=== PATIENT | female | born 1940 | race Hispanic/Latino ===

== ENCOUNTER 2022-03-30 13:36 | Emergency (ER) | payer OTHER ==
--- OUTSIDE RECORDS SUMMARY | 2022-03-30 13:40 | XMS REPORT | Continuity of Care Document ---
:1940 Author Organization [facility] t Address [address] [place] [address] Care Team Providers Name Role Phone Analisa Freire MD Primary Care Physician ROSALVA PARSONS Attending Clinician Unavailable PAYAL HER Attending Clinician Unavailable IGOR ARANDA Attending Clinician Unavailable ELEAZAR ALVES Attending Clinician Unavailable ZAC KENNEDY Attending Clinician Unavailable GALEN ADLER Attending Clinician Unavailable PROVIDER, AFFILIATE Attending Clinician Unavailable RAE CHAN Attending Clinician Unavailable LAB90 Attending Clinician Unavailable Zac Kennedy DO Attending Clinician Katie Huffman MD Attending Clinician [phone] KATIE HUFFMAN Attending Clinician Unavailable Rosalva Parsons PA-C Attending Clinician JOHNNIE TODD Attending Clinician Unavailable LILLIAN ULLOA Attending Clinician Unavailable Hue, YAIMA Attending Clinician Unavailable JUJU SORIA Attending Clinician Unavailable MARNIE GALLAGHER Attending Clinician Unavailable ROS-MODERNA GABINO COOK Attending Clinician ANALISA Joiner Attending Clinician Unavailable ROS-MODERNA LILLIAN COOK Attending Clinician UnavailYOMAIRA Dyer Attending Clinician Unavailable CLAIRE FITZPATRICK Attending Clinician Unavailable Payers Payer Name Policy Type Policy Number Effective Date Expiration Date S [facility] 7 [id number] 2017 00:00:00 Problems Condition Condition Condition Status Onset Resolution Last Treating Co mments Source Name Details Category Date Date Treatment Clinician Date Dementia Dementia Disease Active 2020-05 Overview: Eric lopez without without 2-10 Formattin Seybo ld behavioral behavioral 00:00: g of this disturbanc disturbanc 00 note e e might be different from the original. meds did not help Per daughter memory loss has progresse d -includin g ability to take care of hygiene Daughter takes care of daily functions Has quetiapin e to take prn for agitation not used per daughter Last Assessmen t & Plan: Formattin g of this note might be different from the original. Not Controlle d Abnormal Abnormal Disease Active 2020-05 Jose correia ECG ECG 0-14 Seybold 00:00: 00 LEE LEE Disease Active 2020-05 Yi (dyspnea (dyspnea 0-14 Seybol d on on 00:00: exertion) exertion) 00 Type 2 Type 2 Disease Active Yi diabetes diabetes 8-25 Seybol d mellitus mellitus 00:00: with stage with stage 00 3a chronic 3a chronic kidney kidney disease disease Dyslipidem Dyslipidem Disease Active 2019-05 K elsey ia ia 0-08 Seybold 00:00: 00 Osteopenia Osteopenia Disease Active Overview : iY 9-22 Formattin Seybold 00:00: g of this 00 note might be different from the original. On alendrona te since 2017 Last bone density 01/2019 improved repeat in ast Assessmen t & Plan: Formattin g of this note might be different from the original. Controlle d Mild Mild Disease Active 2018-05 Overview: Yi intermitte intermitte 0-18 Formattin Seybold nt asthma nt asthma 00:00: g of this 00 note might be different from the original. Uses albuterol inhaler rarely Last Assessmen t & Plan: Formattin g of this note might be different from the original. Controlle d Risk for Risk for Disease Active 2018-05 Overview: Eric lopez falls falls 0-18 Formattin Seybold 00:00: g of this 00 note might be different from the original. Moderate risk Uses walker Last Assessmen t & Plan: Formattin g of this note might be different from the original. Controlle d Chronic Chronic Disease Active Overview: Fide ey kidney kidney 7-16 Formattin Seybold disease, disease, 00:00: g of this stage 3a stage 3a 00 note might be different from the original. Last gfr improved at 67 ml/min Last Assessmen t & Plan: Formattin g of this note might be different from the original. Resolved Late onset Late onset Disease Active 2017-05 Overview : Yi Alzheimer' Alzheimer' 0-26 Formattin Seybold s disease s disease 00:00: g of this without without 00 note behavioral behavioral might be disturbanc disturbanc different e e from the original. meds did not help Per daughter memory loss has progresse d -includin g ability to take care of hygiene Daughter takes care of daily functions Has quetiapin e to take prn for agitation not used per daughter Last Assessmen t & Plan: Formattin g of this note might be different from the original. Not Controlle d Type 2 Type 2 Disease Active 2016-05 Yi diabetes diabetes 0-02 Seybol d mellitus mellitus 00:00: with with 00 peripheral peripheral neuropathy neuropathy Hypertensi Hypertensi Disease Active 2016-05 Lizbeth elsey ve renal ve renal 0-02 Seybol d disease disease 00:00: 00 Orthostati Orthostati Disease Active Overview : Yi c c 9 Formattin Seybold dizziness dizziness 00:00: g of this 00 note might be different from the original. Hard to determine - since pt is not communica tive Last Assessmen t & Plan: Formattin g of this note might be different from the original. 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 Has had numbness feet - currently non communica tive - so unable to express symptoms Last Assessmen t & Plan: Formattin g of this note might be different from the original. Unchanged Pseudophak Pseudophak Disease Active K elsey ia, right ia, right 9-22 Seyb old eye eye 00:00: 00 Gastroesop Gastroesop Disease Active Overview : Yi hageal hageal 02-04 Formattin Seybold reflux reflux 00:00: g of this disease disease 00 note might be different from the original. Takes pepcid prn Last Assessmen t & Plan: Formattin g of this note might be different from the original. Controlle d Personal Personal Disease Active Overview: Eric lopez history of history of 02-04 Formattin Seybold TIA TIA 00:00: g of this (transient (transient 00 note ischemic ischemic might be attack) attack) different from the original. Last episode 3 yrs ago On p[lavix No residual effects Followed by dr cota Last Assessmen t & Plan: Formattin g of this note might be different from the original. Stable Essential Essential Disease Active Overview: Yi hypertensi hypertensi 02-04 Formattin Seybold on on 00:00: g of this 00 note might be different from the original. On amlodipin e 10 mg and losartan 100 mg Last Assessmen t & Plan: Formattin g of this note might be different from the original. Controlle d Dyslipidem Dyslipidem Disease Active Overview : Yi ia ia 02-04 Formattin Seybold associated associated 00:00: g of this with type with type 00 note 2 diabetes 2 diabetes might be mellitus mellitus different from the original. -takes glimepiri de prn Dyslipide selam -on fenofibra te and atorvasta tin -will check labs Last Assessmen t & Plan: Formattin g of this note might be different from the original. Controlle d Allergies, Adverse Reactions, Alerts This patient has no known allergies or adverse reactions. Social History Social Habit Start Date Stop Date Quantity Comments Source Alcohol intake 2021-07-31 2021-07-31 Current Yi light 00:00:00 00:00:00 non-drinker of alcohol (finding) Exposure to 2021-06-18 2021-07-18 Not sure Yi jones SARS-CoV-2 00:00:00 14:20:00 (event) Tobacco use and 2017-02-04 2017-02-04 Smokeless tobacco Eric [place] Seybold exposure 00:00:00 00:00:00 non-user Sex Ass[birth year] [facility] Smoking Status Start Date Stop Date Source Tobacco smoking consumption unknown [facility] Never smoked tobacco Yi Seyb old Medications Ordered Filled Start Stop Current Ordering Indication Dosage Frequency Signature Comments Components Source Medication Medication Date Date Medication? Clinician (SIG) Name Name Cyanocobala Yes 1000ug Take 1,000 Yi min 3-15 mcg by Seybold (VITAMIN 09:22: mouth B12 OR) 25 daily Calcium Yes Take by Yi Carbonate-V 3-15 mouth Seybold it D-Min 09:22: (CALTRATE 25 PLUS OR) Galantamine Yes [id number] 8mg Take 1 Yi Hydrobromid 3-15 capsule (8 Se ybold e 8 MG oral 00:00: mg total) Capsule 24 00 by mouth Hour daily Sustained (with Release breakfast) Amoxicillin 2021- No [id number] 500mg Take 1 Yi 500 MG oral 3-10 03-18 capsule Seyb old Capsule 00:00: 04:59 (500 mg 00 :00 total) by mouth in the morning and 1 capsule (500 mg total) in the evening. Do all this for 7 days. Cyanocobala Yes 1000ug Take 1,000 Yi min 3-07 mcg by Seybold (VITAMIN 09:41: mouth B12 OR) 14 daily Calcium Yes Take by Yi Carbonate-V 3-07 mouth Seybold it D-Min 09:41: (CALTRATE 14 PLUS OR) traMADol-Ac Yes [id number] 1{tbl} [id number] Take 1 Yi etaminophen 3-07 [id number] tablet by Seybold 37.5-325 MG 00:00: 3D mouth oral Tablet 00 every 8 hours as needed for pain (use for moderate pain only) traMADol-Ac Yes [id number] 1{tbl} Q.[id number] Take 1 Yi etaminophen 3-07 [id number] tablet by Seybold 37.5-325 MG 00:00: 3D mouth oral Tablet 00 every 8 hours as needed for pain (use for moderate pain only) Amlodipine 2020-05 Yes [id number] 10mg Take 1 K elsey Besylate 10 2-28 tablet (10 Se ybold MG oral 00:00: mg total) Tablet 00 by mouth daily Time for office visit and labs Fenofibrate 2020-05 Yes [id number] TAKE 1 Yi 145 MG oral 2-28 TABLET BY Sey bold Tablet 00:00: MOUTH 00 DAILY. Amlodipine 2020-05 Yes [id number] 10mg Take 1 K elsey Besylate 10 2-28 tablet (10 Se ybold MG oral 00:00: mg total) Tablet 00 by mouth daily Time for office visit and labs Fenofibrate 2020-05 Yes [id number] TAKE 1 Yi 145 MG oral 2-28 TABLET BY Sey bold Tablet 00:00: MOUTH 00 DAILY. Cyanocobala 2020-05 Yes 1000ug Take 1,000 Yi min 2-10 mcg by Seybold (VITAMIN 10:35: mouth B12 OR) 10 daily Calcium 2020-05 Yes Take by Yi Carbonate-V 2-10 mouth Seybold it D-Min 10:35: (CALTRATE 10 PLUS OR) Memantine 2020-05 Yes [id number] 10mg Take 1 Ke lsey HCl 10 MG 2-10 tablet (10 Seyb old oral Tablet 00:00: mg total) 00 by mouth 2 times daily Memantine 2020-05 Yes [id number] 10mg Take 1 Ke lsey HCl 10 MG 2-10 tablet (10 Seyb old oral Tablet 00:00: mg total) 00 by mouth 2 times daily Memantine 2020-05 Yes [id number] 10mg Take 1 Ke lsey HCl 10 MG 2-10 tablet (10 Seyb old oral Tablet 00:00: mg total) 00 by mouth 2 times daily Alendronate Yes [id number] 35mg Take 1 Yi Sodium 35 8-25 tablet (35 Seyb old MG oral 00:00: mg total) Tablet 00 by mouth every 7 days Atorvastati Yes [id number] TAKE 1 Yi n Calcium 8-25 TABLET(10 Seybo ld 10 MG oral 00:00: MG) BY Tablet 00 MOUTH DAILY. FOLLOW UP Clopidogrel Yes [id number] 75mg Take 1 Yi Bisulfate 8-25 tablet (75 Seyb old 75 MG oral 00:00: mg total) Tablet 00 by mouth daily Famotidine Yes [id number] 20mg Take 1 Yi (PEPCID) 20 8-25 tablet (20 Se ybold MG oral 00:00: mg total) tablet 00 by mouth 2 times daily Glimepiride Yes [id number] 2mg Take 1 Yi 2 MG oral 8-25 tablet (2 Seybo ld Tablet 00:00: mg total) 00 by mouth every morning (before breakfast) Levalbutero Yes [id number] 1{puff} Q4H Inhale 1-2 Yi l Tartrate 8-25 puffs into Sey bold (Xopenex 00:00: the lungs HFA) 45 00 every 4 MCG/ACT hours as inhalation needed for Aerosol wheezing Losartan Yes [id number] 1{tbl} Take 1 K elsey Potassium-H 8-25 tablet by Sey bold CTZ 00:00: mouth 100-12.5 MG 00 daily Time oral Tablet for annual physical Alendronate Yes [id number] 35mg Take 1 Yi Sodium 35 8-25 tablet (35 Seyb old MG oral 00:00: mg total) Tablet 00 by mouth every 7 days Atorvastati Yes [id number] TAKE 1 Yi n Calcium 8-25 TABLET(10 Seybo ld 10 MG oral 00:00: MG) BY Tablet 00 MOUTH DAILY. FOLLOW UP Clopidogrel Yes [id number] 75mg Take 1 Yi Bisulfate 8-25 tablet (75 Seyb old 75 MG oral 00:00: mg total) Tablet 00 by mouth daily Famotidine Yes [id number] 20mg Take 1 Yi (PEPCID) 20 8-25 tablet (20 Se ybold MG oral 00:00: mg total) tablet 00 by mouth 2 times daily Glimepiride Yes [id number] 2mg Take 1 Yi 2 MG oral 8-25 tablet (2 Seybo ld Tablet 00:00: mg total) 00 by mouth every morning (before breakfast) Levalbutero Yes [id number] 1{puff} Q4H Inhale 1-2 Yi l Tartrate 8-25 puffs into Sey bold (Xopenex 00:00: the lungs HFA) 45 00 every 4 MCG/ACT hours as inhalation needed for Aerosol wheezing Losartan Yes [id number] 1{tbl} Take 1 K elsey Potassium-H 8-25 tablet by Sey bold CTZ 00:00: mouth 100-12.5 MG 00 daily Time oral Tablet for annual physical Alendronate Yes [id number] 35mg Take 1 Yi Sodium 35 8-25 tablet (35 Seyb old MG oral 00:00: mg total) Tablet 00 by mouth every 7 days Amlodipine Yes [id number] 10mg Take 1 K elsey Besylate 10 8-25 tablet (10 Se ybold MG oral 00:00: mg total) Tablet 00 by mouth daily Time for office visit and labs Atorvastati Yes [id number] TAKE 1 Yi n Calcium 8-25 TABLET(10 Seybo ld 10 MG oral 00:00: MG) BY Tablet 00 MOUTH DAILY. FOLLOW UP Clopidogrel Yes [id number] 75mg Take 1 Yi Bisulfate 8-25 tablet (75 Seyb old 75 MG oral 00:00: mg total) Tablet 00 by mouth daily Famotidine Yes [id number] 20mg Take 1 Yi (PEPCID) 20 8-25 tablet (20 Se ybold MG oral 00:00: mg total) tablet 00 by mouth 2 times daily Fenofibrate Yes [id number] TAKE 1 Yi 145 MG oral 8-25 TABLET BY Sey bold Tablet 00:00: MOUTH 00 DAILY. Glimepiride Yes [id number] 2mg Take 1 Yi 2 MG oral 8-25 tablet (2 Seybo ld Tablet 00:00: mg total) 00 by mouth every morning (before breakfast) Levalbutero Yes [id number] 1{puff} Q4H Inhale 1-2 Yi l Tartrate 8-25 puffs into Sey bold (Xopenex 00:00: the lungs HFA) 45 00 every 4 MCG/ACT hours as inhalation needed for Aerosol wheezing Losartan Yes [id number] 1{tbl} Take 1 K elsey Potassium-H 8-25 tablet by Sey bold CTZ 00:00: mouth 100-12.5 MG 00 daily Time oral Tablet for annual physical No known 2021-0 No No known Metho di medications 5-[address] [facility] l Spacer/Aero 2020-0 Yes [id number] 1{each} QD 1 each by Yi -Holding 5-20 other Seybold Chambers 00:00: route (AeroChambe 00 daily as r MV) does needed for not apply other Misc Spacer/Aero 2020-0 Yes [id number] 1{each} QD 1 each by Yi -Holding 5-20 other Seybold Chambers 00:00: route (AeroChambe 00 daily as r MV) does needed for not apply other Misc Spacer/Aero 2020-0 Yes [id number] 1{each} Q24H 1 each by Yi -Holding 5-20 other Seybold Chambers 00:00: route (AeroChambe 00 daily as r MV) does needed for not apply other Misc Lifitegrast 2020-0 Yes [id number] 1[drp] Place 1 Yi (Xiidra) 5 3-08 drop into Seyb old % 00:00: both eyes ophthalmic 00 2 times Solution daily Lifitegrast 202-0 Yes [id number] 1[drp] Place 1 Yi (Xiidra) 5 3-08 drop into Seyb old % 00:00: both eyes ophthalmic 00 2 times Solution daily Lifitegrast 202-0 Yes [id number] 1[drp] Place 1 Yi (Xiidra) 5 3-08 drop into Seyb old % 00:00: both eyes ophthalmic 00 2 times Solution daily Blood 2020-1 Yes [id number] Use once Fide ey Glucose 0-08 daily Seybold Monitoring 00:00: Suppl 00 (Blood Glucose Monitor System) w/Device does not apply Kit Glucose 2020-1 Yes [id number] Use once Ke lsey Blood in 0-08 daily Seybold vitro Strip 00:00: 00 Lancets 2020-1 Yes [id number] Use once Ke lsey does not 0-08 daily Seybold apply Misc 00:00: 00 Blood 2020-1 Yes [id number] Use once Fide ey Glucose 0-08 daily Seybold Monitoring 00:00: Suppl 00 (Blood Glucose Monitor System) w/Device does not apply Kit Glucose 2020-1 Yes [id number] Use once Ke lsey Blood in 0-08 daily Seybold vitro Strip 00:00: 00 Lancets 2019-05 Yes [id number] Use once Ke lsey does not 0-08 daily Seybold apply Misc 00:00: 00 Blood 2019-05 Yes [id number] Use once Fide ey Glucose 0-08 daily Seybold Monitoring 00:00: Suppl 00 (Blood Glucose Monitor System) w/Device does not apply Kit Glucose 2019-05 Yes [id number] Use once Ke lsey Blood in 0-08 daily Seybold vitro Strip 00:00: 00 Lancets 2019-05 Yes [id number] Use once Ke lsey does not 0-08 daily Seybold apply Misc 00:00: 00 Immunizations Ordered Immunization Filled Immunization Date Status Commen ts Source Name Name Influenza Virus 2021-03-10 Completed Yi núñezold Vaccine, Quadrivalent, 00:00:00 High Dose, Age 65 And Up Influenza Virus 2021-03-10 Completed Yi ybold Vaccine, Quadrivalent, 00:00:00 High Dose, Age 65 And Up Influenza Virus 2021-03-10 Completed Yi núñezold Vaccine, Quadrivalent, 00:00:00 High Dose, Age 65 And Up Covid-19 Vaccine 2021-01-12 Completed Yi sue Moderna (Spikevax), 00:00:00 Mrna-lnp, Ventura Protein, Pf Covid-19 Vaccine 2021-01-12 Completed Yi herrerald Moderna (Spikevax), 00:00:00 Mrna-lnp, Ventura Protein, Pf Covid-19 Vaccine 2021-01-12 Completed Yi sue (Moderna), Mrna-lnp, 00:00:00 Ventura Protein, Pf, 100 Mcg/0.5ml,IM Covid-19 Vaccine 2020-06-27 Completed Yi herrerald Moderna (Spikevax), 00:00:00 Mrna-lnp, Ventura Protein, Pf Covid-19 Vaccine 2020-06-27 Completed Yi herrerald Moderna (Spikevax), 00:00:00 Mrna-lnp, Ventura Protein, Pf Covid-19 Vaccine 2020-06-27 Completed Yi herrerald (Moderna), Mrna-lnp, 00:00:00 Ventura Protein, Pf, 100 Mcg/0.5ml,IM Covid-19 Vaccine 2020-05-30 Completed Yi Jenkins eybold Moderna (Spikevax), 00:00:00 Mrna-lnp, Ventura Protein, Pf Covid-19 Vaccine 2020-05-30 Completed Yi S eybold Moderna (Spikevax), 00:00:00 Mrna-lnp, Ventura Protein, Pf Covid-19 Vaccine 2020-05-30 Completed Yi S eybold (Moderna), Mrna-lnp, 00:00:00 Ventura Protein, Pf, 100 Mcg/0.5ml,IM Influenza Virus 2020-02-11 Completed Yi Se ybold Vaccine, Quadrivalent, 00:00:00 High Dose, Age 65 And Up Influenza Virus 2020-02-11 Completed Yi Se ybold Vaccine, High Dose, 00:00:00 Age 65 And Up Influenza Virus 2020-02-11 Completed Yi Se ybold Vaccine, Quadrivalent, 00:00:00 High Dose, Age 65 And Up Influenza Virus 2020-02-11 Completed Yi Se ybold Vaccine, High Dose, 00:00:00 Age 65 And Up Influenza Virus 2020-02-11 Completed Yi Se ybold Vaccine, Quadrivalent, 00:00:00 High Dose, Age 65 And Up Influenza Virus 2020-02-11 Completed Yi Se ybold Vaccine, High Dose, 00:00:00 Age 65 And Up Influenza Virus 2019-03-05 Completed Yi Se ybold Vaccine, High Dose, 00:00:00 Age 65 And Up Influenza Virus 2019-03-05 Completed Yi Se ybold Vaccine, High Dose, 00:00:00 Age 65 And Up Influenza Virus 2019-03-05 Completed Yi Se ybold Vaccine, High Dose, 00:00:00 Age 65 And Up Influenza Virus 2018-03-13 Completed Yi Se ybold Vaccine, High Dose, 00:00:00 Age 65 And Up Pneumococcal Vaccine, 2018-03-13 Completed Esequiel sey Seybold Conjugate 13 00:00:00 Influenza Virus 2018-03-13 Completed Yi Se ybold Vaccine, High Dose, 00:00:00 Age 65 And Up Pneumococcal Vaccine, 2018-03-13 Completed Esequiel sey Seybold Conjugate 13 00:00:00 Influenza Virus 2018-03-13 Completed Yi Se ybold Vaccine, High Dose, 00:00:00 Age 65 And Up Pneumococcal Vaccine, 2018-03-13 Completed Esequiel sey Seybold Conjugate 13 00:00:00 Shingles IM (Shingrix) 2017-12-18 Completed Ke lsey Seybold 00:00:00 Shingles IM (Shingrix) 2017-12-18 Completed Ke lsey Seybold 00:00:00 Shingles IM (Shingrix) 2017-12-18 Completed Ke lsey Seybold 00:00:00 Shingles IM (Shingrix) 2017-07-31 Completed Ke lsey Seybold 00:00:00 Shingles IM (Shingrix) 2017-07-31 Completed Ke lsey Seybold 00:00:00 Shingles IM (Shingrix) 2017-07-31 Completed Ke lsey Seybold 00:00:00 Pneumococcal Vaccine, 2017-02-17 Completed Esequiel sey Seybold Polysaccharide 00:00:00 Tdap- (Boostrix, 2017-02-17 Completed Yi Jenkins eybold Adacel) 00:00:00 Pneumococcal Vaccine, 2017-02-17 Completed Esequiel sey Seybold Polysaccharide 00:00:00 Tdap- (Boostrix, 2017-02-17 Completed Yi S eybold Adacel) 00:00:00 Pneumococcal Vaccine, 2017-02-17 Completed Esequiel sey Seybold Polysaccharide 00:00:00 Tdap- (Boostrix, 2017-02-17 Completed Yi S eybold Adacel) 00:00:00 Influenza Virus 2017-02-04 Completed Yi Wright ybold Vaccine, High Dose, 00:00:00 Age 65 And Up Influenza Virus 2017-02-04 Completed Yi Se ybold Vaccine, High Dose, 00:00:00 Age 65 And Up Influenza Virus 2017-02-04 Completed Yi Se ybold Vaccine, High Dose, 00:00:00 Age 65 And Up Vital Signs Vital Name Observation Time Observation Value Comments Source Systolic blood pressure 2021-07-31 14:31:00 128 mm[Hg] Yi Wrightybold Diastolic blood 2021-07-31 14:31:00 83 mm[Hg] Jose correia Seybold pressure Heart rate 2021-07-31 14:31:00 91 /min Yi sue Body temperature 2021-07-31 14:31:00 36.61 Evangelina Fide ey Seybold Respiratory rate 2021-07-31 14:31:00 18 /min Fide ey Seybold Body height 2021-07-31 14:31:00 154.9 cm Yi S eybold Body weight 2021-07-31 14:31:00 71.668 kg Yi S eybold BMI 2021-07-31 14:31:00 29.85 kg/m2 Yi S eybold Systolic blood pressure 2021-07-23 15:35:00 132 mm[Hg] Yi Seybold Diastolic blood 2021-07-23 15:35:00 66 mm[Hg] Kelse y Seybold pressure Heart rate 2021-07-23 15:35:00 105 /min Yi S eybold Body temperature 2021-07-23 15:35:00 36.89 Evangelina Fide ey Seybold Respiratory rate 2021-07-23 15:35:00 16 /min Fide ey Seybold Body height 2021-07-23 15:35:00 157.5 cm Yi S eybold Body weight 2021-07-23 15:35:00 73.029 kg Yi S eybold BMI 2021-07-23 15:35:00 29.45 kg/m2 Yi S eybold Systolic blood pressure 2021-04-27 16:34:00 120 mm[Hg] Yi Seybold Diastolic blood 2021-04-27 16:34:00 70 mm[Hg] Kelse y Seybold pressure Heart rate 2021-04-27 16:34:00 82 /min Yi S eybold Body temperature 2021-04-27 16:34:00 36.22 Evangelina Fide ey Seybold Respiratory rate 2021-04-27 16:34:00 16 /min Fide ey Seybold Body height 2021-04-27 16:34:00 157.5 cm Yi S eybold Body weight 2021-04-27 16:34:00 71.668 kg Yi S eybold BMI 2021-04-27 16:34:00 28.90 kg/m2 Yi S eybold Procedures This patient has no known procedures. Plan of Care Planned Activity Planned Date Details Comments Source Future Scheduled 2022-03-25 [facility]ITIS [facility] 23:29:00 VACCINES (1 of 3 - 3-dose series) [code = HEPATITIS B VACCINES (1 of 3 - 3-dose series)] Future Scheduled 2022-03-25 [facility] 23:29:00 (1 of 2) [code = SHINGLES VACCINES (1 of 2)] Future Scheduled 2022-03-25 COVID-19 VACCINE (3 [facility] 23:29:00 - Booster for Moderna series) [code = COVID-19 VACCINE (3 - Booster for Moderna series)] Future Scheduled 2022-03-25 INFLUENZA VACCINE [facility] 23:29:00 [code = INFLUENZA VACCINE] Encounters Start End Encounter Admission Attending Care Care Encounter Source Date/Time Date/Time Type Type Clinicians Facility Department ID 2022-04-26 2022-04-26 Outpatient YI PARSONS [id number] Yi 10:15:00 10:15:00 ROSALVA Seybol d 2022-04-16 2022-04-16 Outpatient YI HER [id number] Yi 10:00:00 10:00:00 PAYAL Seybol d 2022-03-30 2022-03-30 Outpatient VACHIRASUDL YI BARBOSA [id number] Yi 11:45:00 11:45:00 ANASTASIA Seybol d IGOR 2022-03-22 2022-03-22 Outpatient YI ALVES [id number] Yi 14:40:00 14:40:00 ELEAZAR Seybo ld 2022-03-12 2022-03-12 Outpatient YI KENNEDY [id number] Yi 08:45:00 08:45:00 ZAC Seybol d 2022-03-08 2022-03-08 Outpatient YI KENNEDY [id number] Yi 08:15:00 08:15:00 ZAC Seybol d 2022-02-15 2022-02-15 Outpatient YI KENNEDY [id number] Yi 00:00:00 00:00:00 ZAC Seybol d 2022-02-05 2022-02-05 Outpatient PREZAS, YI BARBOSA [id number] Yi 00:00:00 00:00:00 ZAC Seybol d 2022-02-04 2022-02-04 Outpatient PREZAS, YI BARBOSA [id number] Yi 15:45:00 15:45:00 ZAC Seybol d 2022-02-04 2022-02-04 Outpatient PREZAS, YI BARBOSA [id number] Yi 09:30:00 09:30:00 ZAC Seybol d 2022-02-04 2022-02-04 Outpatient PREZAS, YI BARBOSA [id number] Yi 00:00:00 00:00:00 ZAC Seybol d 2022-01-30 2022-01-30 Outpatient METOXEN, YI BARBOSA [id number] Yi 15:30:00 15:30:00 GALEN Seyb old 2022-01-30 2022-01-30 Outpatient YI BARBOSA [id number] Yi 15:20:00 15:20:00 Seybol d 2022-01-30 2022-01-30 Outpatient PREZAS, YI BARBOSA [id number] Yi 00:00:00 00:00:00 ZAC Seybol d 2022-01-30 2022-01-30 Outpatient METOXEN, YI BARBOSA [id number] Yi 00:00:00 00:00:00 GALEN Seyb old 2022-01-29 2022-01-29 Outpatient PROVIDER, YI BARBOSA [id number] Yi 00:00:00 00:00:00 AFFILIATE Seyb old 2022-01-29 2022-01-29 Outpatient PREZAS, YI BARBOSA [id number] Yi 00:00:00 00:00:00 ZAC Seybol d 2022-01-28 2022-01-28 Emergency E CHAN, MHBL MHBL [id number] MHBL 20:09:00 23:17:00 REEVA 2022-01-28 2022-01-28 Outpatient LAB90 YI BARBOSA [id number] Yi 16:30:00 16:30:00 Seybol d 2022-01-28 2022-01-28 Office Rocky Kennedy [id number] Yi 15:45:00 16:15:00 Visit Zac Mace [id number] Se ybold [id number] 2022-01-11 2022-01-11 Outpatient LAB90 YI BARBOSA [id number] Yi 09:15:00 09:15:00 Seybol d 2022-01-11 2022-01-11 Office MosheRocky [id number] Yi 08:15:00 09:00:00 Visit Katie Mace [id number] Se ybold Somogyi [id number] 2022-01-11 2022-01-11 Outpatient YI HUFFMAN [id number] Yi 08:15:00 08:15:00 KATIE Seybol d 2021-12-24 2021-12-24 Outpatient YI HUFFMAN [id number] Yi 00:00:00 00:00:00 KATIE Seybol d 2021-11-23 2021-11-23 Office PANCHO Parsons [id number] Yi 10:15:00 11:00:00 Visit [facility] [id number] S javierobdulia [id number] 2021-11-16 2021-11-16 Outpatient YI PARSONS [id number] Yi 10:15:00 10:15:00 ROSALVA Seybol d 2021-11-02 2021-11-02 Outpatient YI PARSONS [id number] Yi 10:15:00 10:15:00 ROSALVA Seybol d 2021-08-31 2021-08-31 Outpatient YI PARSONS [id number] Yi 00:00:00 00:00:00 ROSALVA Seybol d 2021-08-30 2021-08-30 Outpatient YI PARSONS [id number] Yi 00:00:00 00:00:00 ROSALVA Seybol d 2021-08-21 2021-08-21 Outpatient YI HUFFMAN [id number] Yi 00:00:00 00:00:00 KATIE Seybol d 2021-08-16 2021-08-16 Outpatient YI HUFFMAN [id number] Yi 00:00:00 00:00:00 KATIE Seybol d 2021-08-15 2021-08-15 Outpatient YI HUFFMAN [id number] Yi 00:00:00 00:00:00 KATIE Seybol d 2021-08-02 2021-08-02 Outpatient YI HUFFMAN [id number] Yi 00:00:00 00:00:00 KATIE Seybol d 2021-08-02 2021-08-02 Outpatient YI BARBOSA [id number] Yi 00:00:00 00:00:00 Seybol d 2021-07-31 2021-07-31 Office PANCHO Parsons [id number] Yi 09:30:00 10:15:00 Visit [facility] [id number] Se ybold [id number] 2021-07-25 2021-07-25 Outpatient YI BARBOSA [id number] Yi 10:25:00 10:25:00 Seybol d 2021-07-25 2021-07-25 Outpatient YI BARBOSA [id number] Yi 10:20:00 10:20:00 Seybol d 2021-07-24 2021-07-24 Outpatient IY HUFFMAN [id number] Yi 00:00:00 00:00:00 KATIE Seybol d 2021-07-23 2021-07-23 Outpatient LAB90 YI BARBOSA [id number] Yi 10:35:00 10:35:00 Seybol d 2021-07-23 2021-07-23 Office Rocky Huffman [id number] Yi 09:30:00 10:00:00 Visit Katie Mace [id number] Se ybold Somogyi [id number] 2021-07-23 2021-07-23 Outpatient YI HUFFMAN [id number] Yi 00:00:00 00:00:00 KATIE Seybol d 2021-07-20 2021-07-20 Outpatient PARSONSYI BEARDEN [id number] Yi 11:00:00 11:00:00 ROSALVA Seybol d 2021-05-24 2021-05-24 Outpatient YI BARBOSA [id number] Yi 13:15:00 13:15:00 Seybol d 2021-05-15 2021-05-15 Outpatient YI HUFFMAN [id number] Yi 00:00:00 00:00:00 KATIE Seybol d 2021-05-10 2021-05-10 Outpatient YI BARBOSA [id number] Yi 09:15:00 09:15:00 Seybol d 2021-05-04 2021-05-04 Outpatient YI BARBOSA [id number] Yi 11:45:00 11:45:00 Seybol d 2021-04-27 2021-04-27 Office PANCHO TODD [id number] Yi 10:45:00 10:45:00 Visit [facility] [id number] [facility] [id number] 2021-03-29 2021-03-29 Outpatient YI BARBOSA [id number] Yi 14:30:00 14:30:00 Seybol d 2021-03-27 2021-03-27 Outpatient YI BARBOSA [id number] Yi 14:30:00 14:30:00 Seybol d 2021-03-10 2021-03-10 Outpatient FLUYI [id number] Yi 10:30:00 10:30:00 PEARLAND Seybo ld 2021-03-01 2021-03-01 Outpatient 39, HOLTER YI BARBOSA [id number] Yi 14:15:00 14:15:00 Seybol d 2021-03-01 2021-03-01 Outpatient YI SORIA [id number] Yi 14:00:00 14:00:00 ALI Seybol d 2021-02-13 2021-02-13 Outpatient PEREZYI [id number] Yi 15:30:00 15:30:00 JOHNNIE Evans ld 2021-02-07 2021-02-07 Outpatient AILEENYI [id number] Yi 14:15:00 14:15:00 MARNIE Seybol d 2021-01-31 2021-01-31 Outpatient COVID-MODER YI YI [id number] Yi 11:00:00 11:00:00 NA BOOSTER, Se leeroy CLEAR 2021-01-31 2021-01-31 Outpatient YI FREIRE [id number] Yi 10:00:00 10:00:00 ANALISA Seybol d 2021-01-12 2021-01-12 Outpatient COVID-MODER YI BARBOSA [id number] Yi 10:40:00 10:40:00 NA BOOSTER, Se leeroy SNYDER 2021-01-11 2021-01-11 Outpatient YOMAIRA IRWIN YI BARBOSA [id number] Yi 10:10:00 10:10:00 Seybol d 2021-01-10 2021-01-10 Outpatient COVID-MODER YI YI [id number] Yi 11:00:00 11:00:00 NA BOOSTER, Se leeroy SNYDER 2021-01-10 2021-01-10 Outpatient LAB90 YI BARBOSA [id number] Yi 10:00:00 10:00:00 Seybol d 2021-01-10 2021-01-10 Outpatient YI HUFFMAN [id number] Yi 09:00:00 09:00:00 KATIE Seybol d 2020-10-11 2020-10-[address] [id number] [place] 00:00:00 00:00:[id number] Results This patient has no known results.
[2022-03-30] MEDS ORDERED: ONDANSETRON 4 MG/2 ML VIAL ONE (14:28)
[2022-03-30] MEDS ORDERED: NA CHLORIDE 0.9% 500 ML ONE (14:28)
[2022-03-30 14:55] LABS: Urine Blood Negative (Negative); Urine Glucose Negative (Negative); Urine Protein Negative (Negative); Urine Specific Gravity >=1.030 (1.005-1.030); Urine pH 5.5 (5.0-7.0)
[2022-03-30 15:35] LABS: Absolute Lymphocytes (CBC) 0.9 K/uL (0.7-4.9); Hematocrit 47.8 % (36.0-45.0); Lymphocytes % 9.6 % (15.3-44.8); MCV 81.6 fL (80-100); MPV 8.6 fL (7.6-11.3); RBC Red Blood Cell Count 5.86 M/uL (3.86-4.86)
[2022-03-30 15:39] LABS: Urine Bacteria <20 /HPF (<20); Urine Crystals Unidentified Few /HPF (None Seen); Urine Mucus 2+ /HPF (None Seen); Urine RBC <5 /HPF (None Seen)
[2022-03-30 15:55] LABS: Albumin 4.2 g/dL (3.4-5.0); Bilirubin Total 0.4 mg/dL (0.2-1.0); Potassium 3.5 mmol/L (3.5-5.1); Protein, Total 7.9 g/dL (6.4-8.2); Troponin High Sensitivity 10.7 pg/mL (<58.9)
[2022-03-30 16:06] LABS: Blood Morphology Comment NOT SEEN (NOT SEEN); Platelet Estimate ADEQ; White Blood Cell Scan OK (OK)
--- NOTE | 2022-03-30 16:29 | RAD REPORT ---
EXAM DESCRIPTION: CTAbdomen Pelvis W Contrast - 03/30/2022 4:15 pm CLINICAL HISTORY: abdominal pain, vomiting, diarrhea COMPARISON: No comparisons TECHNIQUE: CT of the abdomen and pelvis was performed. All CT scans are performed using dose optimization technique as appropriate and may include automated exposure control or mA/KV adjustment according to patient size. FINDINGS: Lower chest: Cardiomegaly. Coronary artery calcifications. Liver: Minimal intrahepatic biliary ductal dilatation. Biliary: Cholecystectomy. Extrahepatic biliary duct dilatation is likely related to the postcholecyst ectomy state. Stomach: No significant focal abnormality. Duodenum: No significant focal abnormality. Pancreas: No significant abnormality. Spleen: No significant abnormality. Adrenal: No suspicious lesions. Kidney/ureter: No hydronephrosis. No renal calculi. Retroperitoneum: No retroperitoneal adenopathy. Vascular: No aneurysm. Bowel: Liquid stool within the colon. Normal appendix. Mild diffuse colonic wall hyperenhancement.. M ild mesenteric edema associated with some of the small bowel in the left hemiabdomen. Peritoneum: No ascites or free air. Bladder: Grossly unremarkable. Reproductive: No adnexal masses. Bones: No acute fracture. Other: n/a IMPRESSION: Possible mild enterocolitis. No other acute process identified. No bowel obstruction. No rmal appendix.
--- NOTE | 2022-03-30 18:23 | ER ---
Nurse's Notes [facility] Name: Jyothi Villatoro Age: 81 yrs Sex: Female : 1940 Arrival Date: 03/30/2022 Time: 13:41 Bed 23 Private MD: Troy Kennedy Diagnosis: Nausea with vomiting, unspecified;Diarrhea, unspecified Presentation: 03/30 14:05 Chief complaint: Patient's son or daughter states: vomiting and diarrhea for the past 3 tp1 days, as well as bilateral lower leg and left knee swelling. Daughter states PT has been more confused than normal today and "is getting lost in her own room". Daughter states PT has been incontinent of diarrhea and has been hiding accidents. 14:05 Coronavirus screen: Vaccine status: Patient reports receiving the 2nd dose of the covid tp1 vaccine. Ebola Screen: Patient denies exposure to infectious person. Patient denies travel to an Ebola-affected area in the 21 days before illness onset. Initial Sepsis Screen: Does the patient meet any 2 criteria? No. Patient's initial sepsis screen is negative. Does the patient have a suspected source of infection? No. Patient's initial sepsis screen is negative. Risk Assessment: Do you want to hurt yourself or someone else? Unable to obtain Other: pt has history of Alzheimer's. Onset of symptoms was March 27, 2022. 14:05 Method Of Arrival: Ambulatory tp1 14:05 Acuity: RENEE 3 tp1 Triage Assessment: 14:05 General: Appears in no apparent distress. comfortable, Behavior is calm, cooperative. tp1 Pain: Denies pain. EENT: No deficits noted. Neuro: Level of Consciousness is awake, alert, obeys commands, Oriented to person, place, daughter states PT is at baseline . Cardiovascular: Capillary refill < 3 seconds in bilateral fingers Patient's skin is warm and dry. Respiratory: Airway is patent Respiratory effort is even, unlabored. GI: Abdomen is obese, Abd is soft and non tender Parent/caregiver reports the patient having diarrhea, nausea, vomiting. GI: Parent/caregiver reports the patient having incontinence. : No signs and/or symptoms were reported regarding the genitourinary system. Derm: Skin is. Musculoskeletal: Circulation, motion, and sensation intact. Swelling present in bilateral lower extremeities and left knee. 18:58 GI: Reports. tp1 Historical: - Allergies: 14:19 No Known Allergies; tp1 - Home Meds: 14:19 Famotidine Oral [Active]; alendronate oral [Active]; losartan oral [Active]; tp1 clopidogrel oral [Active]; amlodipine oral [Active]; atorvastatin oral [Active]; galantamine oral [Active]; fenofibrate oral [Active]; Glimepiride Oral [Active]; - PMHx: 14:19 Alzheimer's disease; Hypertensive disorder; Diabetes mellitus; kidney issues; tp1 - Immunization history:: Client reports receiving the 2nd dose of the Covid vaccine. - Social history:: Smoking status: Patient denies any tobacco usage or history of. Screenin:05 Abuse screen: Denies threats or abuse. Denies injuries from another. Nutritional tp1 screening: No deficits noted. Tuberculosis screening: No symptoms or risk factors identified. 14:05 Fall Risk None identified. tp1 Assessment: 14:05 Reassessment: see triage assessment. tp1 14:56 Reassessment: Patient appears in no apparent distress at this time. No changes from tp1 previously documented assessment. Patient and/or family updated on plan of care and expected duration. Pain level reassessed. Patient is alert, oriented x 3, equal unlabored respirations, skin warm/dry/pink. Patient denies pain at this time. 16:02 Reassessment: Patient appears in no apparent distress at this time. No changes from tp1 previously documented assessment. Patient is alert, oriented x 3, equal unlabored respirations, skin warm/dry/pink. Patient denies pain at this time. 16:02 Reassessment: escorted to CT via stretcher by [facility]. tp1 17:30 Reassessment: Patient appears in no apparent distress at this time. No changes from tp1 previously documented assessment. Patient and/or family updated on plan of care and expected duration. Pain level reassessed. Patient is alert, oriented x 3, equal unlabored respirations, skin warm/dry/pink. Patient denies pain at this time. Vital Signs: 14:05 BP 138 / 78; Pulse 100; Resp 17; Temp 98.1(O); Pulse Ox 97% on R/A; Weight 71.67 kg; tp1 Height 5 ft. 2 in. (157.48 cm); 14:56 BP 133 / 78; Pulse 84; Resp 17; Pulse Ox 98% on R/A; tp1 16:01 BP 122 / 70; Pulse 74; Resp 19; Pulse Ox 98% on R/A; tp1 17:30 BP 130 / 80; Pulse 81; Resp 16; Pulse Ox 98% on R/A; tp1 18:00 BP 112 / 93; Pulse 85; Resp 16; Pulse Ox 99% on R/A; tp1 14:05 Body Mass Index 28.90 (71.67 kg, 157.48 cm) tp1 ED Course: 13:41 Patient arrived in ED. am2 13:41 Troy Kennedy DO is Private Physician. am2 13:47 Annie Barajas MD is Attending Physician. sd2 13:47 Amber Wylie, WALT is Primary Nurse. tp1 14:05 Arm band placed on. tp1 14:05 Patient has correct armband on for positive identification. Bed in low position. Call tp1 light in reach. Side rails up X 1. Adult w/ patient. Client placed on continuous cardiac and pulse oximetry monitoring. NIBP monitoring applied. 14:05 EKG done. tp1 14:19 Triage completed. tp1 14:57 Initial lab(s) drawn, by me, sent to lab. Inserted saline lock: 22 gauge in left aa5 forearm, using aseptic technique. Blood collected. 16:17 CT Abd/Pelvis - IV Contrast Only In Process Unspecified. EDMS 18:18 Troy Kennedy DO is Referral Physician. sd2 18:30 No provider procedures requiring assistance completed. IV discontinued, intact, tp1 bleeding controlled, No redness/swelling at site. Pressure dressing applied. Administered Medications: 15:04 Drug: NS 0.9% 500 ml Route: IV; Rate: bolus; Site: left forearm; tp1 17:30 Follow up: IV Status: Completed infusion; IV Intake: 500ml tp1 15:05 Drug: Zofran (Ondansetron) 4 mg Route: IVP; Site: left femoral; tp1 16:01 Follow up: Response: Nausea is decreased tp1 Medication: 14:05 VIS not applicable for this client. tp1 Intake: 17:30 IV: 500ml; Total: 500ml. tp1 Outcome: 18:22 Discharge ordered by . sd2 18:40 Discharged to home ambulatory, with family. tp1 18:40 Condition: good 18:40 Discharge instructions given to patient, Instructed on discharge instructions, follow up and referral plans. 18:59 Patient left the ED. tp1 Signatures: Dispatcher [employer] EDErika Paul RN RN aa5 Linda Caldwell am2 Amber Wylie RN RN tp1 Annie Barajas MD MD sd2 Jake Bradford eh4 Corrections: (The following items were deleted from the chart) 14:26 14:05 Musculoskeletal: Circulation, motion, and sensation intact. tp1 tp1 15:09 15:03 Radiology exam delayed due to lab results not completed at this time. eh4 (BUN/Creatinine) IV insertion attempt and/or patient not having appropriate IV at this time. eh4
--- NOTE | 2022-03-30 18:23 | EDPHYS ---
Physician Documentation [facility] Name: Jyothi Villatoro Age: 81 yrs Sex: Female : 1940 Arrival Date: 03/30/2022 Time: 13:41 Bed 23 Private MD: Troy Kennedy ED Physician Annie Barajas HPI: 03/30 14:21 This 81 yrs old Female presents to ER via Ambulatory with complaints of Leg sd2 Swelling, Vomiting/Diarrhea. 14:21 81-year-old female presents with chief complaint of vomiting and diarrhea for the past sd2 2 days. Daughter gives history as the patient has baseline Alzheimer's dementia. Her daughter reports however that she has been more confused than normal getting lost in her own bedroom. She has had some intermittent abdominal pain and cramping as well as bloating. No recent antibiotics or travel. No new food exposures or recent sick contacts. Denies any known fever, chest pain or shortness of breath. Unable to keep anything down at home today.. Historical: - Allergies: 14:19 No Known Allergies; tp1 - Home Meds: 14:19 Famotidine Oral [Active]; alendronate oral [Active]; losartan oral [Active]; tp1 clopidogrel oral [Active]; amlodipine oral [Active]; atorvastatin oral [Active]; galantamine oral [Active]; fenofibrate oral [Active]; Glimepiride Oral [Active]; - PMHx: 14:19 Alzheimer's disease; Hypertensive disorder; Diabetes mellitus; kidney issues; tp1 - Immunization history:: Client reports receiving the 2nd dose of the Covid vaccine. - Social history:: Smoking status: Patient denies any tobacco usage or history of. ROS: 14:21 Constitutional: Negative for fever, chills, and weight loss, Eyes: Negative for injury, sd2 pain, redness, and discharge, Cardiovascular: Negative for chest pain, palpitations, and edema, Respiratory: Negative for shortness of breath, cough, wheezing. 14:21 MS/Extremity: Negative for injury and deformity, Skin: Negative for injury, rash, and discoloration, Neuro: Negative for headache, numbness and tingling. 14:21 Abdomen/GI: Positive for abdominal pain, nausea, vomiting, and diarrhea, abdominal cramps, abdominal distension. Exam: 14:21 Constitutional: This is a well developed, well nourished patient who is awake, alert, sd2 and in no acute distress. Head/Face: Normocephalic, atraumatic. Eyes: EOMI, normal conjunctiva bilaterally Chest/axilla: Normal chest wall appearance and motion. Nontender with no deformity. Cardiovascular: Regular rate and rhythm with a normal S1 and S2. No gallops, murmurs, or rubs. 2+ distal pulses. Respiratory: Lungs have equal breath sounds bilaterally, clear to auscultation and percussion. No rales, rhonchi or wheezes noted. No increased work of breathing, no retractions or nasal flaring. 14:21 Skin: Warm, dry with normal turgor. Normal color with no rashes, no lesions, and no evidence of cellulitis. MS/ Extremity: Pulses equal, no cyanosis. Neurovascular intact. Full, normal range of motion. Ambulatory without difficulty. 14:21 Abdomen/GI: Exam negative for guarding, masses, rebound tenderness, Inspection: Palpation: soft, mild abdominal tenderness, in the left upper quadrant and left lower quadrant. 14:21 ECG was reviewed by the Attending Physician. NSR, rate 94, no STEMI criteria, PRWP sd2 Vital Signs: 14:05 BP 138 / 78; Pulse 100; Resp 17; Temp 98.1(O); Pulse Ox 97% on R/A; Weight 71.67 kg; tp1 Height 5 ft. 2 in. (157.48 cm); 14:56 BP 133 / 78; Pulse 84; Resp 17; Pulse Ox 98% on R/A; tp1 16:01 BP 122 / 70; Pulse 74; Resp 19; Pulse Ox 98% on R/A; tp1 17:30 BP 130 / 80; Pulse 81; Resp 16; Pulse Ox 98% on R/A; tp1 18:00 BP 112 / 93; Pulse 85; Resp 16; Pulse Ox 99% on R/A; tp1 14:05 Body Mass Index 28.90 (71.67 kg, 157.48 cm) tp1 MDM: 13:47 Patient medically screened. sd2 14:21 Differential diagnosis: Nonspecific abd pain, gastritis, cholecystitis, pancreatitis, sd2 appendicitis, diverticulitis, viral gastroenteritis, among others. Data reviewed: vital signs, nurses notes. 18:16 Data reviewed: lab test result(s), EKG, radiologic studies. sd2 18:16 Counseling: I had a detailed discussion with the patient and/or guardian regarding: the sd2 historical points, exam findings, and any diagnostic results supporting the discharge/admit diagnosis, lab results, radiology results, the need for outpatient follow up, to return to the emergency department if symptoms worsen or persist or if there are any questions or concerns that arise at home. Medical screen evaluation completed. EMTALA emergency medical condition absent. ED course: Labs and imaging reviewed. Labs grossly WNCL. Trop neg. EKG with no ischemic changes. CTAP with possible mild enterocolitis. Pt with benign abdominal exam and no further nausea or vomiting after treatment with Zofran. Pt tolerating PO and very well appearing with stable VS. Advised continued supportive care and will dc home with Zofran. Pt to follow up with PCP this upcoming week for recheck. Daughter verbalizes understanding of strict return precautions. . 03/30 14:21 Order name: CBC with Diff; Complete Time: 16:09 sd2 03/30 14:21 Order name: CMP; Complete Time: 16:09 sd2 03/30 14:21 Order name: Lipase; Complete Time: 16:09 sd2 03/30 14:21 Order name: Troponin High Sensitivity; Complete Time: 16:09 sd2 03/30 14:21 Order name: BNP; Complete Time: 16:09 sd2 03/30 14:21 Order name: Urine Microscopic Only; Complete Time: 16:09 sd2 03/30 14:21 Order name: EKG - Nurse/Tech; Complete Time: 14:25 sd2 03/30 14:21 Order name: Urine Dipstick-Ancillary (obtain specimen); Complete Time: 14:56 sd2 03/30 14:21 Order name: CT Abd/Pelvis - IV Contrast Only; Complete Time: 16:46 sd2 03/30 14:55 Order name: Urine Dipstick-Ancillary; Complete Time: 15:31 EDMS 03/30 15:45 Order name: CBC Smear Scan; Complete Time: 16:09 EDMS 03/30 16:47 Order name: PO challenge; Complete Time: 18:58 sd2 Administered Medications: 15:04 Drug: NS 0.9% 500 ml Route: IV; Rate: bolus; Site: left forearm; tp1 17:30 Follow up: IV Status: Completed infusion; IV Intake: 500ml tp1 15:05 Drug: Zofran (Ondansetron) 4 mg Route: IVP; Site: left femoral; tp1 16:01 Follow up: Response: Nausea is decreased tp1 Disposition Summary: 03/30/22 18:22 Discharge Ordered Location: Home sd2 Problem: new sd2 Symptoms: have improved sd2 Condition: Stable sd2 Diagnosis - Nausea with vomiting, unspecified sd2 - Diarrhea, unspecified sd2 Followup: sd2 - With: Troy Kennedy DO - When: 2 - 3 days - Reason: Recheck today's complaints, Continuance of care, Re-evaluation by your physician Discharge Instructions: - Discharge Summary Sheet sd2 - Food Choices to Help Relieve Diarrhea, Adult sd2 - Diarrhea, Adult sd2 - Nausea and Vomiting, Adult sd2 Forms: - Medication Reconciliation Form sd2 - Thank You Letter sd2 - Antibiotic Education sd2 - Prescription Opioid Use sd2 Prescriptions: - Zofran 4 mg Oral Tablet - take 1 tablet by ORAL route every 6 hours As needed; 15 tablet; Refills: 0, sd2 Product Selection Permitted Signatures: Dispatcher [employer] Amber Sawant RN RN tp1 Annie Barajas MD MD sd2
[2022-03-30 19:36] VITALS: TEMP 98.1
[2022-03-30 19:41] VITALS: O2SAT 98
[2022-03-30 19:47] VITALS: BP 122/70
--- NOTE | 2022-04-02 08:27 | EKG ---
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
== END 2022-03-30 18:59 | disposition home or self-care (01) ==
LOC: ER 13:36
DX: R11.2 Nausea with vomiting, unspecified (principal); R19.7 Diarrhea, unspecified; I10 Essential (primary) hypertension; G30.9 Alzheimer's disease, unspecified; F02.80 Dementia in other diseases classified elsewhere, unspecified severity, without behavioral disturbance, psychotic disturbance, mood disturbance, and anxiety; E11.9 Type 2 diabetes mellitus without complications
CPT/HCPCS: 96361; 93005; 85025; 36415; 82565; 84484; 83690; 80053; 83880; 74177; 96374; 99284; Q9967; J7040; J2405; 81003; 81015